=== PATIENT | female | born 1970 | race Caucasian/White ===

== ENCOUNTER → 2016-04-05 | Outpatient (CLI) | payer OTHER ==
--- NOTE | 2016-04-05 17:03 | MA ---
Screening Digital Mammogram With iCAD Analysis Clinical Indications: Routine screening. Technique: Standard cephalocaudal projections are obtained. Digital breast tomosynthesis was performe d in the MLO projection with reconstruction at 1.0 mm slice thickness and composite MLO views reconst ructed. This examination is processed by the iCAD computer aided detection system. Comparison: February 2013, February 2011, May 2005. Breast density: Type C: Heterogeneously dense. Findings: CAD was reviewed. No masses, suspicious calcifications or secondary signs of malignancy are seen. There has been no significant change in the appearance of either breast. Impression: Negative mammogram. BI-RADS 1. Recommendation: Routine mammographic screening in one year as long as physical examination is negativ e in this patient with heterogeneously dense breast parenchyma. [facility] will send a result letter to the patient. Negative mammography should not preclude additional workup of a clinically suspicious finding. The patient's information is entered into a reminder system with a target due date for her next mammo gram.
== END ==
LOC: FIMAGING 16:07
DX: Z12.31 Encounter for screening mammogram for malignant neoplasm of breast (principal)
CPT/HCPCS: G0202

== ENCOUNTER 2017-03-30 08:23 | Outpatient (CLI) | payer OTHER ==
[2017-03-30] MEDS ORDERED: ONDANSETRON 4 MG/2 ML VIAL ONE (08:36)
[2017-03-30] MEDS ORDERED: FLUMAZENIL 0.5 MG/5 ML MDV IVP ONE (08:37)
[2017-03-30] MEDS ORDERED: MIDAZOLAM 2 MG/2 ML VIAL ONE (08:37)
[2017-03-30] MEDS ORDERED: fentaNYL 100 MCG/2 ML INJ ONE (08:37)
[2017-03-30] MEDS ORDERED: NALOXONE HCL 0.4 MG/ML INJ ONE (08:37)
[2017-03-30] MEDS ORDERED: LIDOCAINE 1% 300 MG/30 ML SDV ONE (08:39)
[2017-03-30] MEDS ORDERED: FLUMAZENIL 0.5 MG/5 ML MDV IVP PRN (08:42)
[2017-03-30] MEDS ORDERED: MIDAZOLAM 2 MG/2 ML VIAL IVP PRN (08:42)
[2017-03-30] MEDS ORDERED: MEPERIDINE 25 MG/ML SYR IVP PRN (08:42)
[2017-03-30] MEDS ORDERED: fentaNYL 100 MCG/2 ML INJ IVP PRN (08:42)
[2017-03-30] MEDS ORDERED: NALOXONE HCL 0.4 MG/ML INJ IVP PRN (08:42)
[2017-03-30] MEDS ORDERED: NS 1,000 ML IV SCH (08:45)
[2017-03-30 08:56] VITALS: TEMP 99.6
--- NOTE | 2017-03-30 09:31 | PDGENHP ---
History & Physical Chief Complaint: elevated liver function tests History of Present Illness: elevated LFTs Pertinent Past, Social, Family History: No relevant Relevant Physical Exam: skin clear Cardiorespiratory Assessment: Heart RRR, lungs CTA B
[2017-03-30 10:17] VITALS: O2SAT 100
[2017-03-30 10:33] VITALS: BP 101/73; PULSE 69; RESP 18
[2017-03-30] MEDS ORDERED: ONDANSETRON 4 MG/2 ML VIAL IVP PRN (10:42)
[2017-03-30] MEDS ORDERED: oxyCODONE IR 5 MG TAB PO PRN (10:42)
== END 2017-03-30 13:30 | disposition home or self-care (01) ==
LOC: FIMAGING 08:23
PROVIDERS: ATTEND Internal Medicine
PROC: 0FB13ZX Excision of Right Lobe Liver, Percutaneous Approach, Diagnostic (ICD-10-PCS; principal; 2017-03-30 10:26)
DX: K74.3 Primary biliary cirrhosis (principal)
CPT/HCPCS: J2250; J2310; J2405; J3010

== ENCOUNTER → 2017-04-17 | Outpatient (CLI) | payer OTHER | LOC: FIMAGING 12:19 | PROVIDERS: ATTEND Internal Medicine | DX: Z12.31 Encounter for screening mammogram for malignant neoplasm of breast (principal) ==

== ENCOUNTER → 2018-05-10 | Outpatient (CLI) | payer OTHER | LOC: FIMAGING 16:11 | PROVIDERS: ATTEND Internal Medicine | DX: Z12.31 Encounter for screening mammogram for malignant neoplasm of breast (principal) ==